=== PATIENT | female | born 1990 | race Caucasian/White ===

== ENCOUNTER 2016-10-17 11:32 | Emergency (ER) | payer OTHER ==
[2016-10-17 11:48] VITALS: BP 97/52
--- NOTE | 2016-10-17 12:11 | UC ---
General HPI - HPI Summary HPI Summary: Pt took a home test that came back positive. Unsure LMP - July or August ? Pt is here to find out how far along she is. . Desires work up . No OB here as she moved in to town recently. no abdominal pain or fevers. unplanned . no acute concerns. [ End ] - History of Current Complaint Chief Complaint: UCGeneralIllness Stated Complaint: Time Seen by Provider: 10/17/16 12:02 Hx Obtained From: Patient Hx Last Menstrual Period: unsure - July or August? - Allergy/Home Medications Allergies/Adverse Reactions: Allergies Allergy/AdvReac Type Severity Reaction Status Date / Time No Known Allergies Allergy Verified 10/17/16 11:42 PMH/Surg Hx/FS Hx/Imm Hx Previously Healthy: Yes - Surgical History Surgical History: Yes Surgery Procedure, Year, and Place: D&C 2009 - Social History Lives: With Family Alcohol Use: None Substance Use Type: None Smoking Status (MU): Light Every Day Tobacco Smoker Type: Cigarettes Amount Used/How Often: 4 cigarettes daily When Did the Patient Quit Smoking/Using Tobacco: 2012 Cessation Counseling: Patient Advised to Stop - Immunization History Most Recent Influenza Vaccination: 12/2012 Most Recent Tetanus Shot: 10/2012 Most Recent Pneumonia Vaccination: none Review of Systems Constitutional: Negative Skin: Negative Eyes: Negative ENT: Negative Respiratory: Negative Cardiovascular: Negative Gastrointestinal: Negative Genitourinary: Negative Motor: Negative Neurovascular: Negative Musculoskeletal: Negative Neurological: Negative Psychological: Negative All Other Systems Reviewed And Are Negative: Yes Physical Exam Triage Information Reviewed: Yes Appearance: Well-Appearing Vital Signs: Initial Vital Signs Temp 98.4 F 10/17/16 11:42 Pulse 85 10/17/16 11:42 Resp 16 10/17/16 11:42 BP 97/52 10/17/16 11:42 Pulse Ox 100 10/17/16 11:42 Vital Signs Reviewed: Yes Eye Exam: Normal ENT Exam: Normal Dental Exam: Normal Neck exam: Normal Neck: Positive: 1 Respiratory Exam: Normal Cardiovascular Exam: Normal Abdominal Exam: Normal Musculoskeletal Exam: Normal Neurological Exam: Normal Psychological Exam: Normal Skin Exam: Normal Course/Dx - Differential Dx - Multi-Symptom Provider Diagnoses: Discharge - Discharge Plan Condition: Good Disposition: HOME Patient Education Materials: (ED) Referrals: John Kerr MD [Primary Care Provider] - 3 Days James Oneal MD [Medical Doctor] - As Soon As Possible ([employer] referral ) Additional Instructions: Please establish care with a OB for routine care.
== END 2016-10-17 12:31 | disposition home or self-care (01) ==
LOC: UCCORT 11:32
DX: Z34.80 Encounter for supervision of other normal pregnancy, unspecified trimester (principal); F17.210 Nicotine dependence, cigarettes, uncomplicated
CPT/HCPCS: 36415; 84702; 99211; G0463